=== PATIENT | female | born 1965 | race Asian ===

== ENCOUNTER 2017-10-22 16:43 | Emergency (ER) | payer OTHER ==
[~2017-10-22] VITALS: Ht 157.5 cm; Wt 51.7 kg
[2017-10-22 16:56] VITALS: Ht 157.5 cm; Wt 51.7 kg
[2017-10-22 18:15] LABS: CALCIUM 9.8 mg/dL (8.5-10.1); CARBON DIOXIDE 30.7 mmol/L (21-32); CHLORIDE SERUM 105 mmol/L (98-107); CREATININE SERUM 0.7 mg/dL (0.6-1.0); GFR1 > 60 mL/min; GLUCOSE SERUM 105 mg/dL (74-106); SODIUM SERUM 143 mmol/L (136-145)
[2017-10-22 18:16] LABS: BASOPHIL % 0.5 % (0-2); PLATELET COUNT 238 x10^3mcL (130-400); RED CELL DISTRIBUTION WIDTH 12.7 % (11.5-14.5)
[2017-10-22 18:19] LABS: ALBUMIN 4.4 g/dL (3.4-5.0); ALKALINE PHOSPHATASE 85 U/L (46-116); ALT/SGPT 30 U/L (14-59); AST/SGOT 18 U/L (15-37); BILIRUBIN TOTAL 0.85 mg/dL (0.20-1.00); LIPASE 108 IU/L (73-393); TOTAL PROTEIN, SERUM 7.9 g/dL (6.4-8.2)
[2017-10-22 22:26] VITALS: BP 111/65
== END 2017-10-22 22:26 | disposition home or self-care (01) ==
LOC: ED 16:43
PROVIDERS: Emergency Medicine
DX: N20.0 Calculus of kidney (principal)
CPT/HCPCS: J1885; J2405; J7030; J7040; Q0092; Q9967

== ENCOUNTER 2017-11-03 22:38 | Inpatient (IN) | payer MEDICAID ==
[~2017-11-03] VITALS: Ht 154.9 cm; Wt 52.6 kg
[2017-11-03 22:48] VITALS: Ht 154.9 cm; Wt 52.6 kg
[2017-11-04 00:20] LABS: microscopic required? YES; urine erythrocyte TRACE (NEGATIVE)
[2017-11-04 00:47] LABS: BASOPHIL % 0.3 % (0-2); PLATELET COUNT 243 x10^3mcL (130-400); RED CELL DISTRIBUTION WIDTH 12.5 % (11.5-14.5)
[2017-11-04 00:56] LABS: CALCIUM 9.6 mg/dL (8.5-10.1); CARBON DIOXIDE 30.4 mmol/L (21-32); CHLORIDE SERUM 105 mmol/L (98-107); CREATININE SERUM 0.8 mg/dL (0.6-1.0); GFR1 > 60 mL/min; GLUCOSE SERUM 117 mg/dL (74-106); POTASSIUM SERUM 3.6 mmol/L (3.5-5.1); SODIUM SERUM 145 mmol/L (136-145)
[2017-11-04 01:01] LABS: ALBUMIN 4.3 g/dL (3.4-5.0); ALKALINE PHOSPHATASE 77 U/L (46-116); ALT/SGPT 45 U/L (14-59); AMYLASE 61 U/L (25-115); AST/SGOT 26 U/L (15-37); BILIRUBIN TOTAL 0.79 mg/dL (0.20-1.00); LIPASE 96 IU/L (73-393); TOTAL PROTEIN, SERUM 7.6 g/dL (6.4-8.2)
[2017-11-04 02:08] LABS: AMPHETAMINE QUAL UR NONE DETECTED (See below)
[2017-11-04 03:31] VITALS: BP 131/87
[2017-11-04 04:23] LABS: CHOLESTEROL/HDL RATIO 3.9; MAGNESIUM 2.5 mg/dL (1.8-2.4); PHOSPHOROUS 5.1 mg/dL (2.5-4.9)
[2017-11-04 04:30] LABS: T3 TOTAL 2.42 ng/mL
[2017-11-04 04:33] LABS: FREE T4 3.03 ng/dL (0.76-1.46)
[2017-11-04 04:35] LABS: FREE THYROXINE INDEX 7.4 ug/dL (1.4-4.5); T4(THYROXINE) 18.6 ug/dL (4.7-13.3)
[2017-11-04 05:01] VITALS: BP 116/77
[2017-11-04 05:12] LABS: CALCIUM 8.9 mg/dL (8.5-10.1); CARBON DIOXIDE 26.6 mmol/L (21-32); CHLORIDE SERUM 110 mmol/L (98-107); CREATININE SERUM 0.8 mg/dL (0.6-1.0); GFR1 > 60 mL/min; GLUCOSE SERUM 137 mg/dL (74-106); MAGNESIUM 2.3 mg/dL (1.8-2.4); PHOSPHOROUS 3.8 mg/dL (2.5-4.9); POTASSIUM SERUM 3.8 mmol/L (3.5-5.1); SODIUM SERUM 146 mmol/L (136-145)
[2017-11-04 05:14] LABS: BASOPHIL % 0.1 % (0-2); PLATELET COUNT 210 x10^3mcL (130-400); RED CELL DISTRIBUTION WIDTH 12.6 % (11.5-14.5)
[2017-11-04 05:23] LABS: T3 TOTAL 1.87 ng/mL
[2017-11-04 05:33] LABS: FREE T4 2.61 ng/dL (0.76-1.46)
[2017-11-04 05:34] LABS: FREE THYROXINE INDEX 5.8 ug/dL (1.4-4.5); T4(THYROXINE) 15.2 ug/dL (4.7-13.3)
[2017-11-04 09:41] VITALS: BP 115/79
[2017-11-04 12:52] VITALS: BP 107/72
[2017-11-04 17:54] VITALS: BP 111/73
[2017-11-04 20:36] VITALS: BP 124/86
[2017-11-05 05:33] VITALS: BP 93/68
[2017-11-05 08:37] LABS: BASOPHIL % 0.4 % (0-2); PLATELET COUNT 171 x10^3mcL (130-400); RED CELL DISTRIBUTION WIDTH 12.6 % (11.5-14.5)
[2017-11-05 08:51] LABS: CALCIUM 8.4 mg/dL (8.5-10.1); CARBON DIOXIDE 25.8 mmol/L (21-32); CHLORIDE SERUM 110 mmol/L (98-107); CREATININE SERUM 0.7 mg/dL (0.6-1.0); GFR1 > 60 mL/min; GLUCOSE SERUM 88 mg/dL (74-106); POTASSIUM SERUM 3.2 mmol/L (3.5-5.1); SODIUM SERUM 144 mmol/L (136-145)
[2017-11-05 09:07] VITALS: BP 122/65
[2017-11-05 13:27] VITALS: BP 118/73
[2017-11-05 17:25] VITALS: BP 127/85
[2017-11-05 21:09] VITALS: BP 131/88
[2017-11-06 06:17] VITALS: BP 105/72
[2017-11-06 06:24] LABS: BASOPHIL % 0.2 % (0-2); PLATELET COUNT 175 x10^3mcL (130-400); RED CELL DISTRIBUTION WIDTH 12.5 % (11.5-14.5)
[2017-11-06 06:33] LABS: CARBON DIOXIDE 22.2 mmol/L (21-32); CHLORIDE SERUM 112 mmol/L (98-107); CREATININE SERUM 0.7 mg/dL (0.6-1.0); GFR1 > 60 mL/min; GLUCOSE SERUM 88 mg/dL (74-106); LIPASE 99 IU/L (73-393); POTASSIUM SERUM 4.1 mmol/L (3.5-5.1); SODIUM SERUM 144 mmol/L (136-145)
[2017-11-06 13:14] VITALS: BP 123/80
[2017-11-06] MEDS ORDERED: IND10 PO (17:41)
[2017-11-06] MEDS ORDERED: ELA10 PO (17:41)
[2017-11-06] MEDS ORDERED: PROTONIX40 MG PO (17:42)
[2017-11-06] MEDS ORDERED: LEVAQUIN750 MG PO (17:43)
[2017-11-06 18:07] VITALS: BP 123/80
== END 2017-11-06 19:05 | disposition home or self-care (01) | DRG 241 ==
LOC: ED 22:38 → DU 11-04 02:42
PROVIDERS: Emergency Medicine; Internal Medicine; Internal Medicine Gastroenterology
PROC: 0DB68ZX Excision of Stomach, Via Natural or Artificial Opening Endoscopic, Diagnostic (ICD-10-PCS; principal; 2017-11-06 11:30)
PROC: 0DJD8ZZ Inspection of Lower Intestinal Tract, Via Natural or Artificial Opening Endoscopic (ICD-10-PCS; 2017-11-06 11:30)
DX: K29.70 Gastritis, unspecified, without bleeding (principal); N17.0 Acute kidney failure with tubular necrosis; E83.39 Other disorders of phosphorus metabolism; K64.8 Other hemorrhoids; N20.0 Calculus of kidney; K44.9 Diaphragmatic hernia without obstruction or gangrene; N39.0 Urinary tract infection, site not specified; E83.41 Hypermagnesemia; E78.5 Hyperlipidemia, unspecified; E03.9 Hypothyroidism, unspecified; Z68.21 Body mass index [BMI] 21.0-21.9, adult
CPT/HCPCS: 43235; 45378; 83880; 84439; C9113; J0696; J1200; J1610; J1885; J2060; J2250; J2310; J2405; J2550; J3010; J3480; J3490; J7030; J7042; Q0092

== ENCOUNTER 2018-07-25 19:36 | Emergency (ER) | payer OTHER ==
[~2018-07-25] VITALS: Ht 162.6 cm; Wt 49.9 kg
[~2018-07-25 19:36] MED LIST: ELA10 PO; IND10 PO; LEVAQUIN750 MG PO; PROTONIX40 MG PO
[2018-07-25 19:52] VITALS: Ht 162.6 cm; Wt 49.9 kg
[2018-07-25 21:28] LABS: BASOPHIL % 0.2 % (0-2); PLATELET COUNT 228 x10^3mcL (130-400)
[2018-07-25 21:38] LABS: CALCIUM 9.4 mg/dL (8.5-10.1); CARBON DIOXIDE 26.8 mmol/L (21-32); CHLORIDE SERUM 106 mmol/L (98-107); CREATININE SERUM 0.7 mg/dL (0.6-1.0); GFR1 > 60 mL/min; GLUCOSE SERUM 111 mg/dL (74-106); POTASSIUM SERUM 3.6 mmol/L (3.5-5.1); SODIUM SERUM 144 mmol/L (136-145)
[2018-07-25 21:40] LABS: ALBUMIN 4.3 g/dL (3.4-5.0); ALKALINE PHOSPHATASE 75 U/L (46-116); ALT/SGPT 51 U/L (14-59); AST/SGOT 25 U/L (15-37); BILIRUBIN TOTAL 1.1 mg/dL (0.20-1.00); LIPASE 97 IU/L (73-393)
[2018-07-26 00:11] LABS: UA SPECIFIC GRAVITY 1.015 (1.005-1.035); microscopic required? YES; urine erythrocyte 1+ (NEGATIVE)
[2018-07-26 04:28] VITALS: BP 131/90
== END 2018-07-26 04:29 | disposition home or self-care (01) ==
LOC: ED 19:36
PROVIDERS: Emergency Medicine
DX: K29.70 Gastritis, unspecified, without bleeding (principal); E86.0 Dehydration
CPT/HCPCS: J1200; J2270; J2405; J2765; J3490; J7030